=== PATIENT | female | born 1960 | race Caucasian/White ===

== ENCOUNTER 2016-07-16 21:38 | Emergency (ER) | payer OTHER, SELFPAY ==
[~2016-07-16 21:38] MED LIST: Sodium Chloride 0.9% 1,000 ML BAG ONE
[2016-07-16 21:54] LABS: #Basophils 0.1 thou/uL (0.0-0.2); #Eosinphils 0.4 thou/uL (0.0-0.7); #Lymphocytes 3.1 thou/uL (1.20-3.40); #Monocytes 0.7 thou/uL (0.11-0.59); %Basophils 0.9 % (0.0-1.0); %Eosinophils 3.3 % (0.0-10.0); %Lymphocytes 27.5 % (21.0-51.0); %Monocytes 6.2 % (0.0-10.0); %Neutrophils 62.2 % (42.0-75.0); Hemoglobin 13.5 g/dL (12.0-16.0); Mean Corpuscular HGB CONC 33.4 g/dL (32.0-36.0); Mean Corpuscular Hemoglobin 30.2 pg (27.0-31.0); Mean Corpuscular Volume 90.7 fl (81.0-99.0); Mean Platelet Volume 8.7 fL (7.4-10.4); Platelet Count 210 thou/uL (130-400); RBC Distribution Width 12.6 % (11.5-14.5); Red Blood Cell (RBC) Count 4.47 mill/uL (4.20-5.40); White Blood Cell (WBC) Count 11.3 thou/uL (4.8-10.8)
[2016-07-16 22:05] LABS: PTT 27.4 SEC (22.9-36.1); Prothrombin Time 13.3 SEC (12.0-14.7)
[2016-07-16 22:16] LABS: ALT (SGPT) 19 U/L (0-55); AST (SGOT) 13 U/L (5-34); Albumin 3.8 g/dL (3.5-5.0); Alkaline Phosphatase 94 U/L (40-150); Anion Gap 14 mmol/L (10-20); BUN (Urea Nitrogen) 26 mg/dL (9.8-20.1); Bilirubin, Total 0.4 mg/dL (0.2-1.2); Calc. Creatinine Clearance 0 mL/min (70-130); Calcium 9.5 mg/dL (7.8-10.44); Carbon Dioxide 21 mmol/L (22-29); Chloride 107 mmol/L (98-107); Estimated GFR-MDRD 59; Globulin 3.5 g/dL (2.4-3.5); Glucose 186 mg/dL (70-105); Potassium 3.7 mmol/L (3.5-5.1); Protein, Total 7.3 g/dL (6.0-8.3); Sodium 138 mmol/L (136-145)
[2016-07-16 22:18] LABS: CKMB 0.9 ng/mL (0-6.6)
--- NOTE | 2016-07-16 22:20 | RAD ---
PORTABLE CHEST: 07/16/16 HISTORY: Altered mental status. COMPARISON: 05/08/16 study. Heart size is borderline. Mediastinal structures appear unremarkable. The lungs are clear of infiltr ates. No signs of failure. IMPRESSION: Borderline heart size. POS: [facility]
--- NOTE | 2016-07-16 22:22 | CT ---
CT OF BRAIN PERFORMED WITHOUT CONTRAST ENHANCEMENT: 07/16/16 Comparison 11/27/14 study. HISTORY: Stroke. There is mild generalized ventricular and sulcal prominence. There is no signs of intracerebral hemo rrhage or extra-axial fluid collections. No mass lesion or mass effect. 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 IMPRESSION: 1. No acute intracranial abnormalities. 2. Findings telephoned to Dr. Gómez at 2214 hours. POS: [facility]
[2016-07-16 22:36] LABS: Bilirubin Negative (Negative); Blood, Urine Negative (Negative); Clarity Clear (Clear); Glucose, Urine (Dipstick) Negative (Negative); Leukocyte Negative (Negative); Nitrite Negative (Negative); Protein, Urine (Dipstick) Negative (Neg-Trace); Urobilinogen 0.2 mg/dL (0.2-1.0)
[2016-07-16 22:39] LABS: Specific Gravity, Urine 1.003 (1.002-1.036)
[2016-07-16 22:51] LABS: Amphetamine Not Detected (NotDetected); Barbiturates Screen Not Detected (NotDetected); Benzodiazepine Screen Not Detected (NotDetected); Cocaine Metabolite Screen Not Detected (NotDetected); Methadone Not Detected (NotDetected); Methamphetamine Not Detected (NotDetected); Opiate Screen Not Detected (NotDetected); Oxycodone Screen Not Detected (NotDetected); Phencyclidine (PCP) Not Detected (NotDetected); THC/Cannabinoid Screen Not Detected (NotDetected); Tricyclic Screen Not Detected (NotDetected)
[2016-07-16 22:52] LABS: Medtox Control Line Valid? VALID (VALID)
== END 2016-07-16 23:50 | disposition short-term general hospital (02) ==
LOC: MADERS 21:38
DX: R41.82 Altered mental status, unspecified (principal); R47.01 Aphasia; E11.9 Type 2 diabetes mellitus without complications; E78.00 Pure hypercholesterolemia, unspecified; I10 Essential (primary) hypertension; F17.210 Nicotine dependence, cigarettes, uncomplicated; Z79.82 Long term (current) use of aspirin; Z79.84 Long term (current) use of oral hypoglycemic drugs; Z79.899 Other long term (current) drug therapy
CPT/HCPCS: 36416; 70450; 71010; 80053; 80306; 81003; 82553; 84484; 85025; 85379; 85610; 85730; 93005; 96360; J7050